=== PATIENT | female | born 1980 ===

== ENCOUNTER 2024-07-05 10:01 | Day surgery (SDC) | payer OTHER ==
[2024-07-05] MEDS ORDERED: POVIDONE-IODINE 118 ML BOTT TOP ONE (14:00)
[2024-07-05] MEDS ORDERED: IBU600 MG PO (14:22)
== END 2024-07-05 16:05 | disposition home or self-care (01) ==
LOC: CIR.AMB 10:01
PROVIDERS: ATTEND Obstetrics & Gynecology Gynecology
DX: N87.1 Moderate cervical dysplasia (principal)

== ENCOUNTER 2024-10-06 12:45 | Inpatient (IN) | payer OTHER ==
[~2024-10-06] VITALS: Ht 160 cm; Wt 59.9 kg
[~2024-10-06 12:45] MED LIST: IBU600 MG PO
[2024-10-06 15:22] VITALS: BP 123/70
[2024-10-06 15:23] VITALS: BP 112/75
[2024-10-06 15:51] LABS: RH NEGATIVE
[2024-10-11] MEDS ORDERED: POVIDONE-IODINE 118 ML BOTT TOP ONE (17:15)
[2024-10-11] MEDS ORDERED: CHLORHEXIDINE GLUCONATE 120 ML BOTTLE TOP ONE (17:15)
[2024-10-11] MEDS ORDERED: CEFAZOLIN SODIUM 1,000 MG VIAL IV ONE (17:15)
[2024-10-11] MEDS ORDERED: HEMOSTATIC MATRIX WITH THROMBIN KIT TOP ONE (17:45)
[2024-10-11] MEDS ORDERED: SURGIFLO APPLICATOR 1 EACH APPL TOP ONE (17:45)
[2024-10-11] MEDS ORDERED: RINGERS SOLUTION,LACTATED 1,000 ML IV SCH (18:00)
[2024-10-11] MEDS ORDERED: MORPHINE SULFATE 4 MG/ML VIAL IV PRN (18:00)
[2024-10-11] MEDS ORDERED: CEFAZOLIN SODIUM 1,000 MG VIAL IV SCH (18:00)
[2024-10-11] MEDS ORDERED: MORPHINE SULFATE 4 MG,MORPHINE SULFATE 2 MG IV PRN (18:15)
[2024-10-11] MEDS ORDERED: SUGAMMADEX SODIUM 200 MG/2 ML VIAL IV ONE (18:15)
[2024-10-11] MEDS ORDERED: MORPHINE SULFATE 4 MG/ML VIAL IV ONE ×2 (18:40→19:10)
[2024-10-11 20:34] VITALS: BP 112/75
[2024-10-11] MEDS ORDERED: ONDANSETRON HCL 2 MG/ML VIAL IV SCH (21:00)
[2024-10-11 23:05] LABS: HEMATOCRIT 37.4 % (36.0-45.00); HEMOGLOBIN 12.5 g/dL (12.0-15.00); MEAN CELL VOLUME 94.4 fL (80.00-100.00); MEAN CORPUSCULAR HEMOGLOBIN 31.6 pg (27.00-32.0); MEAN CORPUSCULAR HGB CONC 33.5 g/dl (32.0-36.0); PLATELET COUNT 242 K/uL (150-450); RED BLOOD COUNT 3.96 M/uL (4.00-6.00); RED CELL DISTRIBUTION WIDTH 12.9 % (11.5-14.5)
[2024-10-12] VITALS: BP 106/66
[2024-10-12] MEDS ORDERED: IBU800 MG PO (06:48)
[2024-10-12] MEDS ORDERED: NEURONTIN300 MG PO (06:49)
[2024-10-12 08:51] VITALS: BP 116/52
[2024-10-12] MEDS ORDERED: ENOXAPARIN SODIUM 40 MG/0.4 ML SYRINGE SUBCUTANEO SCH (09:00)
[2024-10-12] MEDS ORDERED: IBUprofen 800 MG TABLET PO STA (12:17)
== END 2024-10-12 13:33 | disposition home or self-care (01) | DRG 743 ==
LOC: SURH 10-11 07:00 → O/R 10-11 07:30 → SURH 10-11 12:45 → OB/GYN 10-11 18:51
PROVIDERS: ADMIT Obstetrics & Gynecology Gynecology; ATTEND Obstetrics & Gynecology Gynecology
PROC: 0UT74ZZ Resection of Bilateral Fallopian Tubes, Percutaneous Endoscopic Approach (ICD-10-PCS; 2024-10-11)
PROC: 0UT94ZZ Resection of Uterus, Percutaneous Endoscopic Approach (ICD-10-PCS; principal; 2024-10-11 07:00)
DX: N85.01 Benign endometrial hyperplasia (principal); Z20.822 Contact with and (suspected) exposure to COVID-19